=== PATIENT | female | born 1975 | race Caucasian/White ===

== ENCOUNTER 2017-08-17 00:58 | Emergency (ER) | payer MEDICARE ==
[2017-08-17 01:02] VITALS: BP 155/69
--- NOTE | 2017-08-17 01:04 | ER Report ---
History and Physical Time Seen By MD: 01:04 HPI/ROS CHIEF COMPLAINT: Toothache, facial swelling HISTORY OF PRESENT ILLNESS: 41-year-old female presents ambulatory to the ER complaining of right facial swelling. She has numerous teeth eroded to the gumline. She has advanced periodontal disease. She's been having pain for one month. She notes no difficulty swallowing. She's had no fever or chills. Tonight she notes facial swelling REVIEW OF SYSTEMS: Respiratory: No cough, no dyspnea. Cardiovascular: No chest pain, no palpitations. Gastrointestinal: No vomiting, no abdominal pain. Musculoskeletal: No back pain. Allergies: Coded Allergies: Penicillins (Verified Allergy, Unknown, 08/17/17) Home Meds Active Scripts Tramadol Hcl (TRAMADOL HCL) 50 Mg Tablet, 1 TAB PO Q4-6H Y for PAIN, #12 TAKE ONE TO TWO TABLETS BY MOUTH EVERY FOUR TO SIX HOURS NEEDED Prov:EMEKA PENG Alberto DO 08/17/17 Clindamycin Hcl (CLINDAMYCIN HCL) 300 Mg Capsule, 300 MG PO TID for infection, # 30 CAPSULE TAKE 1 CAPSULE EVERY SIX HOURS Prov:EMEKA PENG DO 08/17/17 Reported Medications Atorvastatin Calcium (ATORVASTATIN CALCIUM) 20 Mg Tablet, 1 TAB PO QDAY, TAB 08/17/17 Sitagliptin Phosphate (JANUVIA) 50 Mg Tablet, 50 MG PO QDAY 08/17/17 Albuterol Sulfate (PROVENTIL HFA) 6.7 Gm Inh, 1-2 PUFF INH 3-4XD, INH 08/17/17 Insuln Asp Prt/Insulin Aspart (NOVOLOG MIX 70-30 FLEXPEN SYRN) 100 Unit/1 Ml Insuln.pen, 100 UNIT SQ 08/17/17 Insulin Glargine (LANTUS) 100 Unit/Ml Soln, 100 UNIT SUBQ 1-2XD, ML 08/17/17 Reviewed Nurses Notes: Yes Old Medical Records Reviewed: Yes Constitutional Vital Sign - Last 24 Hours 08/17/17 08/17/17 08/17/17 01:02 01:02 01:28 Temp 98.2 Pulse 104 90 Resp 18 B/P (MAP) 155/69 155/69 (97) Pulse Ox 90 92 O2 Delivery Room Air Physical Exam General Appearance: The patient is alert, has no immediate need for airway protection and no current signs of toxicity. Vital signs stable, afebrile, pulse ox normal HEENT: Pupils equal and round no injection. TMs normal, TMJs nontender, examination of the oropharynx reveals numerous teeth with erosion and carries to the gumline. Patient points to the right lower jaw as the site of the pain. There is significant perimandibular swelling of the right face, palpation of the cervical neck tissues reveals no induration or lymphadenopathy. Respiratory: Chest is non tender, lungs are clear to auscultation. Cardiac: regular rate and rhythm Gastrointestinal: Abdomen is soft and non tender, no masses, bowel sounds normal. Musculoskeletal: Neck: Neck is supple and non tender. Extremities have full range of motion and are non tender. Skin: No rashes or lesions. DIFFERENTIAL DIAGNOSIS: After history and physical exam differential diagnosis was considered for dental abscess, osteomyelitis of the jaw, facial cellulitis, parotiditis, lymphadenitis Medical Decision Making ED Course/Re-evaluation ED Course Patient was admitted to an examination room. H&P was done. The differential diagnoses was considered. On clinical examination. Patient has significant facial swelling and advanced periodontal disease. She likely has a tooth abscess. She may even of ostial myelitis of the jaw. She'll be started on clindamycin 3 and her milligrams 3 times a day. She'll be given a limited supply of tramadol for pain relief. She is advised warm compresses and ibuprofen. Patient advised to follow-up with the dentist as soon as possible. Decision to Disposition Date: Aug 17, 2017 Decision to Disposition Time: 01:19 Depart Departure Latest Vital Signs Vital Signs Date Time Temp Pulse Resp B/P (MAP) Pulse Ox O2 Delivery O2 Flow Rate FiO2 08/17/17 01:28 90 92 08/17/17 01:02 155/69 (97) 08/17/17 01:02 98.2 18 Room Air Impression: Primary Impression: Tooth abscess Condition: Improved Disposition: HOME OR SELF-CARE New Scripts Tramadol Hcl (TRAMADOL HCL) 50 Mg Tablet 1 TAB PO Q4-6H Y for PAIN, #12 TAKE ONE TO TWO TABLETS BY MOUTH EVERY FOUR TO SIX HOURS NEEDED Prov: EMEKA PENG DO 08/17/17 Clindamycin Hcl (CLINDAMYCIN HCL) 300 Mg Capsule 300 MG PO TID for infection, #30 CAPSULE TAKE 1 CAPSULE EVERY SIX HOURS Prov: EMEKA PENG DO 08/17/17 Patient Instructions: Dental Abscess (ED) Additional Instructions: Follow-up with the dentist as soon as possible EMEKA PENG DO Aug 17, 2017 01:04
[2017-08-17] MEDS ORDERED: SITA50TA6 PO (01:20)
[2017-08-17] MEDS ORDERED: INSU100I34 SQ (01:20)
[2017-08-17] MEDS ORDERED: ALB6.7R INH (01:20)
[2017-08-17] MEDS ORDERED: LANI SUBQ (01:20)
[2017-08-17] MEDS ORDERED: ATOR20TA65 PO (01:20)
[2017-08-17] MEDS ORDERED: TRAM-420 PO (01:23)
[2017-08-17] MEDS ORDERED: CLIN300C99 PO (01:23)
[2017-08-17] MEDS ORDERED: CLINDAMYCIN 150 MG CAP PO ONE (01:25)
[2017-08-17] MEDS ORDERED: traMADol 50 MG TAB TH 2 TAB/BOTTLE PO ONE (01:25)
== END 2017-08-17 01:46 | disposition home or self-care (01) ==
LOC: ER 01:44
DX: K04.7 Periapical abscess without sinus (principal)
CPT/HCPCS: 99283; A9270; C9399

== ENCOUNTER → 2017-08-31 | Outpatient (CLI) | payer MEDICARE, MEDICAID ==
[~2017-08-31] MED LIST: ALB6.7R INH; ATOR20TA65 PO; CLIN300C99 PO; INSU100I34 SQ; LANI SUBQ; SITA50TA6 PO; TRAM-420 PO
[2017-08-31 10:13] LABS: PLATELET COUNT, AUTOMATED 355 K/uL (150-450)
[2017-08-31 10:27] LABS: LDL CHOLESTEROL 94 mg/dl
== END ==
LOC: LAB 09:47
PROVIDERS: ATTEND Nurse Practitioner Family
DX: E11.9 Type 2 diabetes mellitus without complications (principal); E78.5 Hyperlipidemia, unspecified; R60.0 Localized edema; R53.83 Other fatigue; L03.116 Cellulitis of left lower limb
CPT/HCPCS: 36415; 82040; 82247; 82310; 82374; 82435; 82465; 82565; 82947; 83036; 83718; 84075; 84132; 84155; 84295; 84443; 84450; 84460; 84478; 84520; 85025

== ENCOUNTER 2017-09-16 11:53 | Outpatient (RCR) | payer MEDICARE, MEDICAID ==
[~2017-09-16] VITALS: Ht 162.6 cm; Wt 142.9 kg
--- NOTE | 2017-09-17 09:13 | Medical Nutrition Therapy ---
Nutrition Anthropometrics Height (Inches): 64 (stated) Weight (Pounds): 315 (stated wt) BMI: 54.1 [place] Nutrition Score: [place] Nutrition Risk Score: Dietary Referral Nutrition Risk Factors: Nutrition Risk Comment: Physical Findings Physical Appearance: Morbidly Obese 40+ Skin Appearance Skin Appearance: Edema Edema Location Modifier: Edema Location: Type of Edema: Degree of Edema: Gastrointestinal Symptoms GI Symtoms: Tube Present: Bowel Sounds: Recent Bowel Pattern: Stool Characteristics: Nutrition/Food History Breakfast: 2 eggs, lg bagel, cream cheese,OJ or koolaid if BG low Lunch: 1 can ravioli, or sandwich and chip, or 1 pkg rahmen Dinner: meat, 2c starch, veg: peas, corn, or green beans Snacks: fruit or chips Nutritional Education Nutrition Education Topic: Diabetic Nutrition Learning Readiness: Interested Teaching Methods: Discussion, Handout, Demonstration Response to Teaching: Verbalize understanding Teaching Recipient: Patient, Family Nutrition Counseling: Pt and daughter attended session. Pt is on lantus and humalog insulin. Pt had been on fixed insulin and now is on a 1:20 carb ratio. Discussed different action of humalog and lantus insulins. Discussed how lower insulin may help her with wt loss. Reviewed high CHO foods and portion sizes. Encouraged pt to use a measure cup to initally look at portions sizes as pt's usual portion is larger than standard servings. Reviewed her typicical meals and counted CHO. Pt was to succesfully determine how much insulin to give when CHO was deternimed. Pt needs more practice on determining correct CHO portions. Pt was eating ~ 75-90gm CHO/meal. Pt stated interest in wt loss so recommend eating lower CHO so that she doesn't need as much insulin and it may help with wt loss. Recommend trying to keep CHO to 45-50gm/meal. Pt states she exercises 3 times/wk at [facility]. Encouraged pt to continue. Pt stated interest in insulin pump. Showed pt insulin pump sensor and discussed pros and cons. Pt was given name of [employer] rep to call if she was interested in pursueing. Pt scheduled for f/u on CHO counting next week. Pt will bring in examples of her favorite meals to provide more practice in calculating the CHO. Nutrition Monitoring & Eval RD Patient Assessment Time: 60 minutes Nutritional Comment: provided 60 minutes diabetes educaion focusing on insulin and nutrition. Copies To Copies to: RANDY GREER BETH Sep 16, 2017 15:52
--- NOTE | 2017-09-17 11:29 | Medical Nutrition Therapy ---
Nutritional Education Nutrition Education Topic: Weight Loss Diet Learning Readiness: Interested Teaching Methods: Discussion, Handout Response to Teaching: Verbalize understanding Teaching Recipient: Patient Nutrition Counseling: Correcting error on previous note: Pt and daughter attended session. Pt is on lantus and humalog insulin. Pt had been on fixed insulin and now is on a 1:10 carb ratio. Discussed different action of humalog and lantus insulins. Discussed how lower insulin may help her with wt loss. Reviewed high CHO foods and portion sizes. Encouraged pt to use a measure cup to initally look at portions sizes as pt's usual portion is larger than standard servings. Reviewed her typicical meals and counted CHO. Pt was to succesfully determine how much insulin to give when CHO was deternimed. Pt needs more practice on determining correct CHO portions. Pt was eating ~ 75-90gm CHO/meal. Pt stated interest in wt loss so recommend eating lower CHO so that she doesn't need as much insulin and it may help with wt loss. Recommend trying to keep CHO to 45-50gm/meal. Pt states she exercises 3 times/wk at [facility]. Encouraged pt to continue. Pt stated interest in insulin pump. Showed pt insulin pump sensor and discussed pros and cons. Pt was given name of [employer] rep to call if she was interested in pursueing. Pt scheduled for f/u on CHO counting next week. Pt will bring in examples of her favorite meals to provide more practice in calculating the CHO. Nutrition Monitoring & Eval RD Patient Assessment Time: 60 minutes Nutritional Comment: provided 60 minutes diabetes educaion focusing on insulin and nutrition. Copies To Copies to: RANDY GREER BETH Sep 17, 2017 11:29
--- NOTE | 2017-10-01 17:46 | Medical Nutrition Therapy ---
Nutritional Education Nutrition Education Topic: Diabetic Nutrition Learning Readiness: Interested Teaching Recipient: Patient Nutrition Counseling: Reviewed CHO counting . Pt has been tracking CHO with meals. States insulin was changed to 12:1 ratio and lantus lowered r/t low Bg in am. Reviewed 15:15 rule for low BG. Discussed eating out. Pt has been gettin on line to obtain CHO in foods. Provided handout on restaurant meals with 45- 50gm CHO and reviewed lower CHO options. Pt stated interest in insulin pump with CGM monitor. Discussed [employer] as option if pt doesn't qualify for CGM with pump or insulin pump. Nutrition Monitoring & Eval RD Patient Assessment Time: 45 minutes Nutritional Comment: provided 45 minutes diabetes educaion focusing on carb counting Copies To Copies to: RANDY GREER BETH Oct 01, 2017 17:46
== END 2017-10-21 ==
LOC: DIET 11:53
PROVIDERS: ATTEND Nurse Practitioner Family
DX: Z71.3 Dietary counseling and surveillance (principal); E11.9 Type 2 diabetes mellitus without complications; Z79.4 Long term (current) use of insulin; Z68.43 Body mass index [BMI] 50.0-59.9, adult
CPT/HCPCS: G0108 ×4

== ENCOUNTER → 2017-10-02 | Outpatient (CLI) | payer MEDICARE, MEDICAID | LOC: LAB 09:47 | PROVIDERS: ATTEND Nurse Practitioner Family | DX: E11.9 Type 2 diabetes mellitus without complications (principal) | CPT/HCPCS: 36415; 84681 ==

== ENCOUNTER → 2017-10-06 | Outpatient (CLI) | payer MEDICARE, MEDICAID ==
--- NOTE | 2017-10-19 14:48 | RADIOLOGY IMAGING REPORT ---
FACILITY: [facility] PATIENT NAME: HUYEN BIRD : [id number] MR: [id number] V: [id number] EXAM DATE: [id number] ORDERING PHYSICIAN: RANDY GREER TECHNOLOGIST: Elham Lopez PROCEDURE:BILATERAL DIGITAL SCREENING MAMMOGRAM WITH CAD ASSISTED INTERPRETATION & 3D TOMOSYNTHESIS COMPARISON:Prior mammogram 06/06/2014. INDICATIONS:SCREENING FINDINGS: The breast tissue is almost entirely fatty replaced. Asymmetry upper outer quadrant of the Left breast is less evident than prior exam. Asymmetry superior Right breast is stable to less evident. There are no new enlarging masses or suspicious microcalcification in either breast. DIAGNOSTIC CATEGORY 1--NEGATIVE. RECOMMENDATIONS: ROUTINE MAMMOGRAM AND CLINICAL EVALUATION IN 1 YR. IMPRESSION: BIRADS 1: Negative. Dictated by: Tonny Maddox M.D. on 10/19/2017 at 8:45 Transcribed by: LISA on 10/19/2017 at 9:04 Approved by: Tonny Maddox M.D. on 10/19/2017 at 14:47 [facility]
== END ==
LOC: MAMO 01:18
PROVIDERS: ATTEND Nurse Practitioner Family
DX: Z12.31 Encounter for screening mammogram for malignant neoplasm of breast (principal)
CPT/HCPCS: 77063; 77067

== ENCOUNTER → 2017-12-23 | Outpatient (CLI) | payer MEDICARE, MEDICAID ==
--- NOTE | 2017-12-23 15:10 | RADIOLOGY IMAGING REPORT ---
FACILITY: [facility] [place] PATIENT NAME: Staci Welch : 1975 MR: [id number]: [id number] EXAM DATE: ORDERING PHYSICIAN: RANDY GREER TECHNOLOGIST: [facility] Patient: Staci Welch : 1975 Visit/Account:[id number] Date of Sevice: 12/23/2017 Left knee, two views. HISTORY: Fall, pain. COMPARISON: None. The bones, joints, and soft tissues are unremarkable. No joint space narrowing. No fractures are id entified. No joint effusion. The soft tissues are obese. IMPRESSION: Negative for acute bony abnormality. Report Dictated By: Stephane Morel MD at 12/23/2017 3:05 PM Report E-Signed By: Stephane Morel MD at 12/23/2017 3:06 PM WSN:[id number]
--- NOTE | 2017-12-23 15:13 | RADIOLOGY IMAGING REPORT ---
FACILITY: [facility] PATIENT NAME: Staci Welch : 1975 MR: [id number] V: [id number] EXAM DATE: ORDERING PHYSICIAN: RANDY GREER TECHNOLOGIST: Location: [facility] Patient: Staci Welch : 1975 Visit/Account:[id number] Date of Sevice: 12/23/2017 Exam type: 2 views left clavicle History: Fall Comparison: None. Findings: There is no acute fracture of the left clavicle. AC joint aligns appropriate. Mild degenerative noel nges are noted the AC joint. Glenohumeral joint is unremarkable. Left lung apex is unremarkable. IMPRESSION: 1. No acute fracture of the left clavicle. Report Dictated By: Tonny Maddox MD at 12/23/2017 3:06 PM Report E-Signed By: Tonny Maddox MD at 12/23/2017 3:08 PM WSN:[id number]
--- NOTE | 2017-12-23 15:15 | RADIOLOGY IMAGING REPORT ---
[place] [facility] [place]: Staci Welch : 1975 MR: [id number] V: [id number] EXAM DATE: ORDERING PHYSICIAN: RANDY GREER TECHNOLOGIST: Location: [facility] - [place], [place] Patient: Staci Welch : 1975 Visit/Account:[id number] Date of Sevice: 12/23/2017 Exam type: 3 views of the ribs History: Fall Comparison: None. Findings: There is elevation left hemidiaphragm. Otherwise lungs are well-expanded. No focal infiltrate, pleu ral effusion or pneumothorax. Heart size appears slightly prominent. The osseous structures demonstrate a scoliosis. No displaced rib fractures are seen. Small round adrian cency in the left scapula is noted of uncertain significance. No other bone lesions are seen. IMPRESSION: 1. No acute cardiopulmonary disease. No displaced rib fractures are seen. 2. Elevation of left hemidiaphragm. Report Dictated By: Tonny Maddox MD at 12/23/2017 3:08 PM Report E-Signed By: Tonny Maddox MD at 12/23/2017 3:11 PM WSN:[id number]
== END ==
LOC: RAD 13:57
PROVIDERS: ATTEND Nurse Practitioner Family
DX: M25.512 Pain in left shoulder (principal); M25.562 Pain in left knee; W19.XXXA Unspecified fall, initial encounter
CPT/HCPCS: 71100

== ENCOUNTER 2018-03-11 10:30 | Outpatient (RCR) | payer MEDICAID, MEDICARE ==
--- NOTE | 2017-12-17 23:44 | PT INITIAL EVALUATION ---
MEDICAL DIAGNOSIS: venous insufficiency ulcers to B) Lower legs TREATMENT DIAGNOSIS: same DATE OF ONSET: chronic SUBJECTIVE: Pt notes that she has had difficult to heal draining wounds to B) lower legs previously and did have compression stockings that were simply too difficult to apply. Pt reports good control of DMII and regular blood sugar checks. REHAB PROBLEM LIST: Open and weeping wounds to B) lower legs PREVIOUS MEDICAL HISTORY: please refer to EMR OBJECTIVE: Pt presents with numerous small satellite wounds at R) lower leg [place] that are weeping copiously. Largest area currently measures 0.9cm L x 0.9cm W x 0.3cm D. ASSESSMENT: Pt tolerated non-excisional debridement with the use of tweezers to a depth of subcutaneous tissue in order to remove yellow slough and non-viable tissue. Wound cleansed with sterile saline and main wound, as well as 6 further small satellite wounds covered with vasaline gauze followed by speciality absorptive layer, secured with coflex 2 stage lite compression wrap in a retrograde fashion to address edema and venous insufficiency. Short Term Goals: 1. Pt to maintain clean, dry and intact dressings between PT visits 2. Wounds to remain free of signs and symptoms of infection 3. Pt to demo understanding of importance of proper skin care, to include application of moisturizer, elevation to address edema and proper preventative foot care with daily skin checks. 4. Wounds to demo decreased weeping and gradual re-epithelialization. 5. Pt to demo understanding of preventative care to manage edema long-term Patient's Goals: Wounds to heal without further complication. PLAN: Patient to be seen for non-excisional debridement and advanced wound care product selection to optimize healing and improve edema management. Will consult with Lymphedema specialist to determine further long-term options for management of condition. 1x/Week for up to 3 months Thank you for this referral. If you have any questions, comments, or concerns about this report or plan, please contact me at . H. Meryl Gardiner, PT, MPT, OMS MTDD
--- NOTE | 2018-01-07 15:53 | PT INITIAL EVALUATION ---
MEDICAL DIAGNOSIS: L UE Pain, L knee pain, sarcopenia TREATMENT DIAGNOSIS: L AC Joint Sprain DATE OF ONSET: 12/21/17 SUBJECTIVE: Staci is a 42 year old female who presents to physical therapy with L anterior shoulder pain. Pt has a history of CP and reports losing her balance and falling on December 21, 2017 while getting into her van. Upon falling pt reports injury to her L knee and L shoulder. Pt reports that her L shoulder pain has continued to hurt in the anterior shoulder, while her L knee is getting better. Pt reports her pain at a 2/10 currently and at worst the pain increases to a 9/10. Pain increases with lifting and shoulder abduction. Pt states that icing her shoulder and taking Aleve 2x/day seems to help with pain. Pt is concurrently seeing PT ecmo specialist for wounds on . REHAB PROBLEM LIST: Increased Pain Decreased ROM Decreased Strength Decreased Function Decreased ADL's Decreased Mobility PREVIOUS MEDICAL HISTORY: See EMR OBJECTIVE: Pt presents to PT with increased redness from compression wrapping on . Pt is unable to put feet together when standing from a chair. Posture: Rounded shoulders, forward head posture. ROM: Shoulder ROM (R, L): flex: 130, 78, Abd: 136, 86, ER: 75, 66, IR: T9, T9 Strength: Shoulder MMT (R, L): flex: 4+, 3, abd: 4, 4+, ER: 4+, 4+, IR: 4, 4+, ext: 4+, 4 Palpation: Tenderness to palpation on the L anterior shoulder, specifically the AC joint. Special Tests: Jenkins Jarett: (+) on L shoulder, Horiz. Add: (+) on L shoulder, AC Squeeze: (+) on L shoulder Other Objective Findings: QuickDASH: 43.18% impairment ASSESSMENT: Pt presents to physical therapy with signs and symptoms consistent with a L AC joint sprain. Physical therapy is indicated to address the above deficits to improve overall function with ADL's. Short Term Goals In 6 weeks pt will decrease her QuickDASH score to <20 to improve overall function with ADL's. In 6 weeks pt will improve L shoulder ROM to contralateral shoulder to improve overall function with ADL's. In 6 weeks pt will improve overall shoulder muscle strength to a 4+/5 in bilateral shoulders to improve overall function with ADL's. Patient's Goals Decrease pain PLAN: Patient to be seen for Manual Therapy/STM/MET Strengthening/condition Ice/Heat Range of Motion Ultrasound Stretching Iontophoresis Neuromuscular Re-ed Closed Chain Program Electrical Stim Posture/Body mechanics Gait Trg/Balance Trg Biofeedback Home Exercise Program Mech./Manual Traction Therapeutic Activities 2x/Week for 4 Weeks If you have any questions, comments, or concerns about this report or plan, please contact me at . Thank you, Meryl Dinh, PT, DPT, CLT Mira Patton, SPT MTDD
--- NOTE | 2018-01-26 15:32 | NUR ---
This Physical Therapist or Pattern Cleaner was present for the entire physical therapy session directing the services, making the skilled judgement, and was not engaged in treating another patient or doing another task at the same time as the treatment session.
--- NOTE | 2018-02-02 14:00 | NUR ---
This Physical Therapist or Groutman was present for the entire physical therapy session directing the services, making the skilled judgement, and was not engaged in treating another patient or doing another task at the same time as the treatment session. Addendum: 02/02/18 at 1537 by HARDY PEREZ PT Amended: Links added.
--- NOTE | 2018-03-02 14:34 | PT PLAN OF CARE ---
Physician: Trish Hull APRN Patient is being seen: Staci Welch Therapist: Jyoti Gardiner, PT, MPT, OMS Medical Diagnosis: venous insufficiency ulcers to B) Lower legs Treatment Diagnosis: same Date of Onset: chronic Date of Initial Evaluation: 12/15/17 Date patient was last seen: 02/17/18 Number of treatments: 13 Number of cancellations/No shows: 0 INTERVENTIONS: Non-excisional debridement and advanced wound care product selection to optimize healing and improve edema management. GOALS: 1. Pt to maintain clean, dry and intact dressings between PT visits- Met 2. Wounds to remain free of signs and symptoms of infection- Met 3. Pt to demo understanding of importance of proper skin care, to include application of moisturizer, elevation to address edema and proper preventative foot care with daily skin checks.- Met 4. Wounds to demo decreased weeping and gradual re-epithelialization.- Met 5. Pt to demo understanding of preventative care to manage edema long-term- Met PATIENT'S GOAL: Wounds to heal without further complication. Status of Patient's Goals: Met Patient Compliance: Good overall; pt tends to scratch at areas that are irritated, which can lead to further complications. Prognosis: Good Reasons for continuing therapy: None at this time; Primary wounds have healed and pt has obtained velcro compression wraps to apply daily in order to manage chronic edema. Pt verbalizes understanding of the importance of taking medications as prescribed as well to manage fluid on a regular basis also. Consult with lymphedema specialist indicates that this edema is in fact venous and not treatable with lymphedema approach. KHURRAM
== END 2018-03-15 ==
LOC: PT 10:30
PROVIDERS: ATTEND Nurse Practitioner Family
DX: E11.621 Type 2 diabetes mellitus with foot ulcer (principal); L97.821 Non-pressure chronic ulcer of other part of left lower leg limited to breakdown of skin; I87.2 Venous insufficiency (chronic) (peripheral)
CPT/HCPCS: 97161

== ENCOUNTER 2018-03-18 14:24 | Outpatient (RCR) | payer MEDICARE ==
--- NOTE | 2018-03-18 15:55 | PT PLAN OF CARE ---
Physician: Trish Hull APRN Patient is being seen: 2x/Week Therapist: Meryl Dinh, PT, DPT, CLT Medical Diagnosis: L UE Pain, L knee pain, Frequent Falls Treatment Diagnosis: L AC Joint Sprain, Generalized Weakness, History of Falls Date of Onset: 12/21/17 Date of Initial Evaluation: 01/07/18 Date patient was last seen: 03/18/18 Number of treatments: 9 Number of cancellations/No shows: 6 INTERVENTIONS: Manual Therapy/STM/MET Strengthening/condition Ice/Heat Range of Motion Ultrasound Stretching Iontophoresis Neuromuscular Re-ed Closed Chain Program Electrical Stim Posture/Body mechanics Gait Trg/Balance Trg Biofeedback Home Exercise Program Mech./Manual Traction Therapeutic Activities GOALS: Left AC Joint Sprain Goals: In 6 weeks pt will decrease her QuickDASH score to >20 to improve overall function with ADR's. In 6 weeks pt will improve shoulder ROM to contralateral shoulder to improve overall function with ADR's. MET In 6 weeks pt will improve overall shoulder muscle strength to a 4+/5 in bilateral shoulders to improve overall function with ADR's. MET Fall Prevention Goals: In 6 weeks pt will be able to transfer from seated<>standing from the lowest plinth height without use of B UE for improved function with transfers with ADL's. In 6 weeks pt will increase 4 stage balance to 20 seconds in tandem position B for improved balance with ADL's and decreased risk of falls. In 6 weeks pt will increase LE strength as tested by MMT to 4/5 or greater in all motions for improved function with ADL's. PATIENT'S GOAL: Decrease pain Status of Patient's Goals: Shoulder goals: MET, Fall prevention goals: In Progress Patient Compliance: Fair Prognosis: Good Reasons for continuing therapy: Staci shows excellent progress with shoulder function at this time with L shoulder mobility equal to that of the R and no longer any pain with ADL's. At this time further PT is to focus on knee as well as full LE strength and stability to decrease fall risk and improve functional mobility. With a shift in the focus of treatment new goals have been set to reflect these changes. Posture: Rounded shoulders, forward head posture. ROM: Shoulder ROM (R, L): flex: 123, 117, Abd: 110, 110, ER: 80, 86, IR: T9, T9 Strength: Shoulder MMT (R, L): flex: 4+ B, abd: 4+ B, ER: 4+ B, IR: 4+ B, ext: 4+, 5 Hip MMT (L,R): flexion: 3+, 4, ext: 4, 4+, abd: 4 B, add: 4+ B. Knee: flexion: 4-, 4+, ext: 3+, 5-, Ankles: PF: 4-B, DF: 4+B Balance: 4 Stage Balance (20 sec holds): Tandem 7 sec L, 9 sec R Outcome Measures: QuickDASH Score 43.18% Impairment If you have any questions or concerns, please feel free to contact me at [phone]. Thank you, Meryl Dinh, PT, DPT, CLT MTDD
== END 2018-03-18 18:00 | disposition home or self-care (01) ==
LOC: PT 14:24
PROVIDERS: ATTEND Nurse Practitioner Family
DX: S43.52XA Sprain of left acromioclavicular joint, initial encounter (principal); M25.562 Pain in left knee; R53.1 Weakness; R29.6 Repeated falls

== ENCOUNTER 2018-08-31 19:39 | Emergency (ER) | payer MEDICARE ==
[2018-08-31 19:48] VITALS: BP 80/63
--- NOTE | 2018-08-31 20:00 | ER Report ---
History and Physical Time Seen By MD: 19:50 Hx. of Stated Complaint: FALL FROM STANDING. NORMALLY HAS AN UNSTREADY GATE. LOST HER BALANCE, BROKE A CHAIR IN THE FALL. LEFT KNEE IS SWOLLEN, RT THUMB "MIGHT BE BROKE" HPI/ROS CHIEF COMPLAINT: Fall, pain to right hand HISTORY OF PRESENT ILLNESS: 42-year-old female patient persists to emergency room with complaint of a fall. Patient states that she was putting dishes on the table. She states when she turned she tripped on the leg of the table and fell. She states that she fell onto a chair. She had the chair with her chest and had before with her knee. She states she was having pain in both chest knee, but states that has seemed to resolve. Patient states she does have pain to the thumb. She states she's not able to extend or flex her thumb at the PIP. Patient states she has no numbness or tingling to the thumb. She denies hitting her head, she denies any loss of conscious. She denies having any neck pain. Patient states she is not taking any medication for this. REVIEW OF SYSTEMS: Respiratory: No cough, no dyspnea. Cardiovascular: No chest pain, no palpitations. Gastrointestinal: No vomiting, no abdominal pain. Musculoskeletal: As noted above Allergies: Coded Allergies: Penicillins (Verified Allergy, Unknown, 08/31/18) Home Meds Reported Medications Atorvastatin Calcium (ATORVASTATIN CALCIUM) 20 Mg Tablet, 1 TAB PO QDAY, TAB 08/17/17 Albuterol Sulfate (PROVENTIL HFA) 6.7 Gm Inh, 1-2 PUFF INH 3-4XD, INH 08/17/17 Insuln Asp Prt/Insulin Aspart (NOVOLOG MIX 70-30 FLEXPEN SYRN) 100 Unit/1 Ml Insuln.pen, 100 UNIT SQ 08/17/17 Insulin Glargine (LANTUS) 100 Unit/Ml Soln, 100 UNIT SUBQ 1-2XD, ML 08/17/17 Discontinued Reported Medications Sitagliptin Phosphate (JANUVIA) 50 Mg Tablet, 50 MG PO QDAY 08/17/17 Discontinued Scripts Tramadol Hcl (TRAMADOL HCL) 50 Mg Tablet, 1 TAB PO Q4-6H PRN for PAIN, #12 TAKE ONE TO TWO TABLETS BY MOUTH EVERY FOUR TO SIX HOURS NEEDED Prov:EMEKA PENG DO 08/17/17 Clindamycin Hcl (CLINDAMYCIN HCL) 300 Mg Capsule, 300 MG PO TID for infection, #30 CAPSULE TAKE 1 CAPSULE EVERY SIX HOURS Prov:EMEKA PENG DO 08/17/17 Past Medical/Surgical History Patient has a past medical history of stroke, mild cerebral palsy, hyperlipidemia, asthma, left ankle fracture 2, type 2 diabetes. Patient has surgical history of appendectomy, hysterectomy. Reviewed Nurses Notes: Yes Hx Substance Use Disorder: No Hx Alcohol Use: No Constitutional Vital Sign - Last 24 Hours 08/31/18 19:48 Temp 98.7 Pulse 90 Resp 16 B/P (MAP) 80/63 Pulse Ox 95 O2 Delivery Room Air Physical Exam General Appearance: The patient is alert, has no immediate need for airway protection and no current signs of toxicity. Respiratory: Chest is non tender, lungs are clear to auscultation. Cardiac: regular rate and rhythm Gastrointestinal: Abdomen is soft and non tender, no masses, bowel sounds normal. Musculoskeletal: Neck: Neck is supple and non tender. Extremities have full range of motion and are non tender. Patient had no tenderness to the left knee. She did have some tenderness to the PIP joint of the right thumb. It does feel to be dislocated towards the palmar aspect. Skin: No rashes or lesions. DIFFERENTIAL DIAGNOSIS: After history and physical exam differential diagnosis was considered for fracture, contusion, dislocation Medical Decision Making EKG/Imaging Imaging EXAMINATION: Chest radiographs 2 views HISTORY: Fall with pain. COMPARISON: Rib radiographs from 12/23/2017. FINDINGS: PA and lateral views of the chest are submitted. Lines/tubes: None. Lungs/pleura: Chronic elevation of the left hemidiaphragm with mild atelectasis along the left lung base. No significant pleural effusion. No evidence of pneumothorax. Heart: Heart size appears within normal limits. Mediastinum: Mediastinal contours are within normal limits. Bony structures/body wall: Negative. IMPRESSION: No radiographic evidence of acute cardiopulmonary disease. Chronic elevation of the left hemidiaphragm. Report Dictated By: Alli Herring MD at 08/31/2018 8:34 PM Report E-Signed By: Alli Herring MD at 08/31/2018 8:37 PM Exam type: 3 views right hand History: Fall Comparison: None. Findings: There is no acute fracture of the right hand. Metacarpals are intact. Carpus aligns appropriately. Soft tissues are unremarkable. IMPRESSION: 1. No acute fracture of the right hand. Report Dictated By: Tonny Maddox MD at 08/31/2018 8:32 PM Report E-Signed By: Tonny Maddox MD at 08/31/2018 8:33 PM Exam type: KNEE 4 VIEW LEFT History: Fall Comparison: 12/23/2017. Findings: There is no acute fracture of the left knee. No appreciable knee effusion. Joint space is preserved. Soft tissues are unremarkable. IMPRESSION: 1. No acute fracture of the left knee. Report Dictated By: Tonny Maddox MD at 08/31/2018 8:33 PM Report E-Signed By: Tonny Maddox MD at 08/31/2018 8:34 PM ED Course/Re-evaluation ED Course Patient is admitted to exam room, history and physical were obtained. Differential diagnoses were considered. On examination lungs are clear, heart is regular, abdomen is soft nontender. Patient did have some tenderness to her thumb, some bruising as well. Patient was initially complaining of some left knee pain. There is no tenderness on palpation. The chest also had no tenderness. A chest x-ray, x-ray of the left knee and x-ray of the right hand were done. The x-ray showed no acute findings, no dislocation of the thumb, which was my concern after palpation. I did anesthetize the thumb using 2% lidocaine and attempted to reduce it. There was no give, there was no pop. I believe that the patient just has a bruise and sprain of thumb. Patient will be treated with a thumb spica. She is to limit her activity by pain. She states Tylenol ibuprofen is as needed for pain. She is return to emergency room if condition worsens. She is to follow-up with her primary care provider next week. Patient verbalized understanding with plan. Decision to Disposition Date: Aug 31, 2018 Decision to Disposition Time: 21:02 Depart Departure Latest Vital Signs Vital Signs Date Time Temp Pulse Resp B/P (MAP) Pulse Ox O2 Delivery O2 Flow Rate FiO2 08/31/18 19:48 98.7 90 16 80/63 95 Room Air Impression: Primary Impression: Sprain of hand, thumb, right Condition: Improved Disposition: HOME OR SELF-CARE Referrals: RANDY GREER (PCP) Patient Instructions: Skier's Thumb (ED) Additional Instructions: Ice the thumb 2-3 times a day for 10-15 minutes. Return to the ER if condition worsens. Take Tylenol or Ibuprofen as needed for pain. Wear the splint all of the time except when you shower for the next 3-4 days. Follow up with your primary care provider in the next week. Problem Qualifiers Primary Impression: Sprain of hand, thumb, right Encounter type: initial encounter Sprain of finger site: metacarpophalangeal joint Qualified Codes: S63.641A - Sprain of metacarpoph alangeal joint of right thumb, initial encounter SHERWIN PACHECOP Aug 31, 2018 20:00
--- NOTE | 2018-08-31 20:40 | RADIOLOGY IMAGING REPORT ---
FACILITY: [facility] - [place] PATIENT NAME: Staci Welch : 1975 MR: [id number] V: [id number] EXAM DATE: ORDERING PHYSICIAN: SHERWIN PACHECO TECHNOLOGIST: Location: [facility] - [place] Patient: Staci Welch : 1975 Visit/Account:[id number] Date of Sevice: 08/31/2018 Exam type: 3 views right hand History: Fall Comparison: None. Findings: There is no acute fracture of the right hand. Metacarpals are intact. Carpus aligns appropriately. So ft tissues are unremarkable. IMPRESSION: 1. No acute fracture of the right hand. Report Dictated By: Tonny Maddox MD at 08/31/2018 8:32 PM Report E-Signed By: Tonny Maddox MD at 08/31/2018 8:33 PM WSN:[id number]
--- NOTE | 2018-08-31 20:41 | RADIOLOGY IMAGING REPORT ---
FACILITY: PATIENT NAME: Staci Welch : 1975 MR: [id number] V: [id number] EXAM DATE: ORDERING PHYSICIAN: SHERWIN PACHECO TECHNOLOGIST: Location: [facility] - [place], [place] Patient: Staci Welch : 1975 Visit/Account:[id number] Date of Sevice: 08/31/2018 Exam type: KNEE 4 VIEW LEFT History: Fall Comparison: 12/23/2017. Findings: There is no acute fracture of the left knee. No appreciable knee effusion. Joint space is preserved. Soft tissues are unremarkable. IMPRESSION: 1. No acute fracture of the left knee. Report Dictated By: Tonny Maddox MD at 08/31/2018 8:33 PM Report E-Signed By: Tonny Maddox MD at 08/31/2018 8:34 PM WSN:[id number]
--- NOTE | 2018-08-31 20:43 | RADIOLOGY IMAGING REPORT ---
FAC[place] [facility] [place]IENT NAME: Staci Welch : 1975 MR: [id number] V: [id number] EXAM DATE: ORDERING PHYSICIAN: SHERWIN PACHECO TECHNOLOGIST: Location: [facility] Patient: Staci Welch : 1975 Visit/Account:[id number] Date of Sevice: 08/31/2018 EXAMINATION: Chest radiographs 2 views HISTORY: Fall with pain. COMPARISON: Rib radiographs from 12/23/2017. FINDINGS: PA and lateral views of the chest are submitted. Lines/tubes: None. Lungs/pleura: Chronic elevation of the left hemidiaphragm with mild atelectasis along the left lung base. No significant pleural effusion. No evidence of pneumothorax. Heart: Heart size appears within normal limits. Mediastinum: Mediastinal contours are within normal limits. Bony structures/body wall: Negative. IMPRESSION: No radiographic evidence of acute cardiopulmonary disease. Chronic elevation of the left hemidiaphragm. Report Dictated By: Alli Herring MD at 08/31/2018 8:34 PM Report E-Signed By: Alli Herring MD at 08/31/2018 8:37 PM WSN:[email or web address]
== END 2018-08-31 21:17 | disposition home or self-care (01) ==
LOC: ER 19:53
DX: S63.641A Sprain of metacarpophalangeal joint of right thumb, initial encounter (principal)
CPT/HCPCS: 71046; 73564; 99284